=== PATIENT | male | born 1935 | race Caucasian/White ===

== ENCOUNTER 2022-12-05 18:10 | Emergency (ER) | payer MEDICARE, SELFPAY ==
--- NOTE | ~2022-12-05 | XR_ITS ---
EXAMINATION: XR ankle LT min 3V DATE: 12/05/2022 19:44 INDICATION: Left ankle pain and swelling. TECHNIQUE: 4 views of left ankle were obtained. COMPARISON: None. FINDINGS: Bone alignment is normal. No fracture. 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 There is mild midfoot osteoarthritis. There is an enthesophyte at p lantar aspect of calcaneal tuberosity. There is ankle soft tissue swelling. IMPRESSION: 1. Mild midfoot osteoarthritis. Reviewed, dictated and finalized at location E.
[2022-12-05 18:13] VITALS: BP 148/55; PULSE 71; RESP 17; TEMP 36.4; O2SAT 96
[2022-12-05 18:51] VITALS: BP 134/66; PULSE 80; RESP 16; TEMP 36.8; O2SAT 93
[2022-12-05 19:36] LABS: Basophils Absolute Auto 0.1 K/mm3 (0.0-0.1); Basophils Percent Auto 1.6 % (0.2-1.2); Eosinophils Absolute Auto 0.2 K/mm3 (0-0.3); Eosinophils Percent Auto 2.8 % (0-4.4); Hematocrit 37.3 % (42.0-52.0); Hemoglobin 12.8 g/dL (14.0-18.0); Immature Granulocyte Absolute 0.05 K/mm3 (0.00-0.031); Immature Granulocyte Percent A 0.8 % (0-0.5); Lymphocytes Absolute Auto 2.02 K/mm3 (0.9-3.2); Lymphocytes Percent Auto 31.9 % (18.3-44.2); Mean Corpuscular HGB Conc 34.3 g/dl (32-36); Mean Corpuscular Hemoglobin 29.8 pg (26-34); Mean Corpuscular Volume 86.9 fl (80-100); Mean Platelet Volume 10.7 fl (7.4-10.4); Monocytes Absolute Auto 1.3 K/mm3 (0.1-0.6); Monocytes Percent Auto 19.9 % (2.6-8.5); Neutrophils Absolute Auto 2.7 K/mm3 (1.3-6.7); Platelet Count Result 507 k/mm3 (150-375); Red Blood Count 4.29 M/mm3 (4.6-6.20); Red Cell Distribution Width 13.6 % (11.5-14.5); White Blood Count 6.3 K/mm3 (4.5-10.0)
[2022-12-05 19:47] LABS: Uric Acid 7.2 mg/dL (3.5-8.5)
[2022-12-05] MEDS: predniSONE 20 MG TABLET 60 MG PO (19:48)
[2022-12-05 19:51] VITALS: BP 132/60; PULSE 66; RESP 15; O2SAT 96
[2022-12-05 19:51] LABS: Alanine Aminotransferase 29 U/L (6-50); Albumin Level 4.2 g/dL (3.5-5.1); Alkaline Phosphatase 107 U/L (38-126); Anion Gap 9 mmol/L (8-16); Aspartate Amino Transferase 36 U/L (17-59); Bilirubin,Total 0.8 mg/dL (0.2-1.3); Blood Urea Nitrogen 24 mg/dL (9-20); CRP 1.7 mg/dL (<1.0); Calcium 9.4 mg/dL (8.4-10.2); Carbon Dioxide 31 mmol/L (22-30); Chloride 93 mmol/L (98-107); Estimated CRCL calculation 49 ml/min; Estimated Glomerular Filt Rate > 60; Glucose 162 mg/dL (65-110); Potassium 4.1 mmol/L (3.4-5.0); Sodium 133 mmol/L (137-145)
[2022-12-05 19:54] LABS: NT Pro B Type Natriuretic Pept 113 pg/mL (19.9-100)
--- NOTE | 2022-12-05 19:57 | ED.EXTPRO ---
HPI - Extremity Problem General Chief complaint: Extremity Problem,Nontraumatic Stated complaint: L ankle redness/soreness Time Seen by Provider: 12/05/22 19:09 Source: patient and family Mode of arrival: ambulatory Limitations: no limitations History of Present Illness HPI Narrative: 87-year-old with a history of CKD, arthralgias, diabetes, remote history of gout here with complaints of left ankle pain and swelling for past few days. He denies any trauma. He states that he has seen a insole taper for the same. He also mentions that he had an MRI of his left leg. He noticed some swelling on the mid rahman area which came back unremarkable. He denies fever or chills. MD Complaint: joint paint (Left ankle) Onset (ago): week(s) (1) Pain Consistency: constant Location: left Quality: aching Radiation: none Relieving factors: movement Exacerbating factors: nothing Associated symptoms: denies other symptoms Related Data Allergies Allergy/AdvReac Type Severity Reaction Status Date / Time barley Allergy Unknown UNKNOWN Verified 02/27/18 09:38 wheat Allergy Unknown UNKNOWN Verified 02/27/18 09:38 Wheat Allergy Mild Uncoded 09/27/15 19:23 Malt Allergy Unknown UNKNOWN Uncoded 02/27/18 09:38 Review of Systems Review of Systems: All systems reviewed & are unremarkable except as noted in HPI and below Constitutional: Constitutional: Reports no additional constitutional complaints Eyes: Eyes: Reports no additional eye complaints ENT: Reports system reviewed and no additional complaints, except as documented Cardiovascular: Cardiovascular: Reports no additional cardiovascular complaints Respiratory: Respiratory: Reports no additional respiratory complaints Gastrointestinal: Gastrointestinal: Reports no additional gastrointestinal complaints Musculoskeletal: Musculoskeletal: Reports as per HPI Integumentary/Breasts: Skin/Breast: Reports system reviewed and no additional complaints, except as docu Neurologic: Reports system reviewed and no additional complaints, except as documented Psychiatric: Psychiatric: Reports no additional psychiatric complaints Endocrine: Endocrine: Reports no additional endocrine complaints Exam Narrative: GENERAL: Well-appearing, well-nourished, and in no acute distress. HEAD: Normocephalic, atraumatic. EYES: PERRLA and EOMI. ENT: Nares clear, no rhinorrhea or epistaxis. Mucous membranes moist. NECK: Supple. CHEST: Clear to auscultation. No respiratory distress. HEART: Regular rate and rhythm. No murmur heard. Normal peripheral pulses. EXTREMITIES: Normal range of motion. Examination of the left ankle shows very minimal edema around the ankle, no erythema SKIN: Warm, dry, no rash. NEURO: No focal deficits. Alert and oriented x3. PSYCH: Normal mood and affect. Course Course Emergency Course: Informed patient about her lab work x-ray findings suspect gouty arthritis even though his uric acid is normal recommended him to take prednisone for few days. Chad wrap the ankle, follow-up with his primary doctor as needed Vital Signs Vital signs: Vital Signs Temperature 36.4 C L 12/05/22 18:13 Pulse Rate 71 12/05/22 18:13 Respiratory Rate 17 12/05/22 18:13 Blood Pressure 148/55 H 12/05/22 18:13 Pulse Oximetry 96 12/05/22 18:13 Oxygen Delivery Room Air 12/05/22 18:13 Temperature 36.8 C 12/05/22 18:51 Pulse Rate 66 12/05/22 19:51 Respiratory Rate 15 12/05/22 19:51 Blood Pressure 132/60 12/05/22 19:51 Pulse Oximetry 96 12/05/22 19:51 Oxygen Delivery Room Air 12/05/22 18:13 MDM - Extremity (Nontraumatic) MDM Narrative Medical decision making narrative: 87-year-old with a history of hypertension diabetes remote history of gout, now having left ankle pain with no history of trauma we will check labs and x-ray. Differential Diagnosis Differential diagnosis: Likely gout and other (Arthritis) Medical Records Attestation: I reviewed the patient's medical
[2022-12-05 20:18] VITALS: BP 130/66; PULSE 68; RESP 14; O2SAT 97
== END 2022-12-05 20:20 | disposition home or self-care (01) ==
PROVIDERS: Emergency Provider Family Medicine
DX: M19.072 Primary osteoarthritis, left ankle and foot (principal); I12.9 Hypertensive chronic kidney disease with stage 1 through stage 4 chronic kidney disease, or unspecified chronic kidney disease; E11.22 Type 2 diabetes mellitus with diabetic chronic kidney disease; N18.9 Chronic kidney disease, unspecified
CPT/HCPCS: 36415; 73610; 80053; 83880; 84550; 85025; 86140; 99283; J7512

== ENCOUNTER 2024-02-03 13:45 | Outpatient (RCR) | payer MEDICARE, SELFPAY | END 2024-02-18 08:34 | disposition home or self-care (01) | LOC: ANHCPREHAB 13:45 | DX: Z95.5 Presence of coronary angioplasty implant and graft (principal) | CPT/HCPCS: 93798 ==

== ENCOUNTER 2024-08-31 08:45 | Outpatient (RCR) | payer MEDICARE, SELFPAY | END 2024-11-17 10:28 | disposition home or self-care (01) | LOC: ANHCPREHAB 08:45 | DX: Z95.5 Presence of coronary angioplasty implant and graft (principal) | CPT/HCPCS: 93798 ==